=== PATIENT | female | born 1980 | race Two or more races ===

== ENCOUNTER 2018-08-23 17:47 | Emergency (ER) | payer MEDICAID ==
[~2018-08-23] VITALS: Ht 152.4 cm; Wt 71.7 kg
[~2018-08-23 17:47] MED LIST: LEV500T PO
[2018-08-23 18:25] LABS: Urine Bacteria NONE SEEN /hpf (None Seen); Urine Blood 2+ /uL (Negative); Urine Mucus FEW (None Seen); Urine Specific Gravity 1.028 (1.001-1.035); Urine WBC 628 /hpf (0 - 5)
[2018-08-23 19:05] VITALS: BP 153/91
[2018-08-23] MEDS: KETOROLAC TROMETH 60MG/2ML VIAL IM ONE (19:15)
[2018-08-23] MEDS: PHENAZOPYRIDINE HCL 100 MG TAB PO ONE (19:40)
[2018-08-23] MEDS: cefTRIAXone SOD 1,000 MG VL IM ONE (19:40)
== END 2018-08-23 20:33 | disposition home or self-care (01) ==
LOC: ER 17:58
DX: N39.0 Urinary tract infection, site not specified (principal)
CPT/HCPCS: 81001; 96372; 99283; J0696; J1885

== ENCOUNTER 2018-09-18 22:26 | Emergency (ER) | payer MEDICAID ==
[~2018-09-18] VITALS: Ht 152.4 cm; Wt 70.8 kg
[2018-09-18 22:59] VITALS: BP 120/78
== END 2018-09-19 05:14 | disposition left against medical advice (07) ==
LOC: ER 22:27
DX: R51 Headache (principal); M54.2 Cervicalgia; Z53.21 Procedure and treatment not carried out due to patient leaving prior to being seen by health care provider; V27.5XXA Motorcycle passenger injured in collision with fixed or stationary object in traffic accident, initial encounter; Y93.89 Activity, other specified; Y92.89 Other specified places as the place of occurrence of the external cause; Y99.8 Other external cause status
CPT/HCPCS: 70450; 72125

== ENCOUNTER 2018-09-19 08:56 | Emergency (ER) | payer MEDICAID ==
[~2018-09-19] VITALS: Ht 152.4 cm; Wt 68.0 kg
[2018-09-19 09:08] VITALS: BP 126/76
[2018-09-19] MEDS ORDERED: ONDANSETRON ODT 4 MG TAB PO ONE (09:45)
[2018-09-19] MEDS ORDERED: MORPHINE SULFATE 4 MG/ML SYR/VIAL IM ONE (09:45)
== END 2018-09-19 11:27 | disposition home or self-care (01) ==
LOC: ER 09:00
DX: S00.83XA Contusion of other part of head, initial encounter (principal); S40.212A Abrasion of left shoulder, initial encounter; S30.810A Abrasion of lower back and pelvis, initial encounter; V87.8XXA Person injured in other specified noncollision transport accidents involving motor vehicle (traffic), initial encounter; Y93.55 Activity, bike riding; Y92.488 Other paved roadways as the place of occurrence of the external cause; Y99.8 Other external cause status
CPT/HCPCS: 70486; 96372; 99284; J2270; Q0162

== ENCOUNTER 2019-04-05 17:32 | Emergency (ER) | payer MEDICAID ==
[~2019-04-05] VITALS: Ht 149.9 cm; Wt 67.1 kg
[2019-04-05 18:46] VITALS: BP 152/85
[2019-04-05] MEDS ORDERED: AZITHROMYCIN 250 MG TAB PO ONE (19:00)
[2019-04-05] MEDS ORDERED: cefTRIAXone SOD 1,000 MG VL IM ONE (19:00)
== END 2019-04-05 19:49 | disposition home or self-care (01) ==
LOC: ER 17:32
DX: R30.0 Dysuria (principal); Z20.2 Contact with and (suspected) exposure to infections with a predominantly sexual mode of transmission
CPT/HCPCS: 81002; 96372; 99283; J0696

== ENCOUNTER 2022-05-25 17:46 | Emergency (ER) | payer MEDICAID ==
[~2022-05-25] VITALS: Ht 152.4 cm; Wt 72.0 kg
[2022-05-25 18:58] LABS: Urine Bacteria FEW /hpf (None Seen); Urine Blood Negative /uL (Negative); Urine Specific Gravity 1.022 (1.001-1.035); Urine WBC 75 /hpf (0 - 5)
[2022-05-25] MEDS ORDERED: CEPH-510 PO (20:26)
[2022-05-25 21:21] VITALS: BP 101/68
== END 2022-05-25 21:23 | disposition home or self-care (01) ==
LOC: ER 17:46
DX: N39.0 Urinary tract infection, site not specified (principal)
CPT/HCPCS: 81001